=== PATIENT | female | born 1970 | race Caucasian/White ===

== ENCOUNTER 2019-02-15 03:27 | Emergency (ER) ==
[2019-02-15] MEDS ORDERED: KETOROLAC 30 MG/ML INJ ONE (04:13)
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
--- NOTE | 2019-02-15 11:15 | RAD REPORT ---
EXAM DESCRIPTION: CT - C Spine Wo Con - 02/15/2019 5:03 am CLINICAL HISTORY: The patient is 89 years old and is Female; ABD PAIN TECHNIQUE: Axial computed tomography images of the abdomen and pelvis with intravenous contrast. S agittal and coronal reformatted images were created and reviewed. This CT exam was performed using one or more of the following dose reduction techniques: automated exposure control, adjustment of t he mA and/or kV according to patient size, and/or use of iterative reconstruction technique. COMPARISON: CT abdomen and pelvis with IV contrast dated February 03, 2019. FINDINGS: LUNG BASES: Unremarkable. No mass. No consolidation. PLEURAL SPACE: Unchanged spiculated 8 mm nodule in the right lung base. No focal consolidation, pl eural effusion or pneumothorax. HEART: Visualized heart is within normal limits. ABDOMEN: LIVER: Intrahepatic ductal dilatation. No mass. GALLBLADDER AND BILE DUCTS: Prior cholecystectomy with extrahepatic ductal dilatation. PANCREAS: Unremarkable. No mass. No ductal dilation. SPLEEN: Unremarkable. No splenomegaly. ADRENALS: Nodular thickening of the left adrenal gland. KIDNEYS AND URETERS: Unremarkable. No solid mass. No hydronephrosis. STOMACH AND BOWEL: Continued evidence of diffuse fluid distention of the small bowel with terminal ileal decompression. Redemonstration of obstructive mass in the dome measuring approximately 2.4 x 2 .3 cm (series 502, image 27). PELVIS: APPENDIX: No findings to suggest acute appendicitis. BLADDER: Unremarkable. No mass. REPRODUCTIVE: Prior hysterectomy. ABDOMEN and PELVIS: INTRAPERITONEAL SPACE: Unremarkable. No free air. No significant fluid collection. BONES/JOINTS: Diffuse osteopenia, advanced levoscoliosis and associated degenerative changes. No acute fracture. No dislocation. SOFT TISSUES: Unremarkable. VASCULATURE: Vascular calcifications. No abdominal aortic aneurysm. LYMPH NODES: Unremarkable. No enlarged lymph nodes. IMPRESSION: 1. Unchanged small bowel obstruction secondary to obstructive lesion in the terminal i leum with marked fluid distention of the small bowel proximal to this finding. No perforation. 2. Diffuse osteopenia, advanced levoscoliosis and associated degenerative changes. 3. Unchanged nodular thickening of the left adrenal gland. 4. Unchanged 8 to 10 mm spiculated right lower lobe pulmonary nodule. Electronically signed by: Marco A Jason DO 02/15/2019 3:52 AM CDT Due to temporary technical issues with the PACS/Fluency reporting system, reports are being signed by the in house radiologist as a courtesy to ensure prompt reporting. The interpreting radiologist is f ully responsible for the content of the report.
== END 2019-02-15 07:41 | disposition home or self-care (01) ==
LOC: ER 03:27
DX: S10.93XA Contusion of unspecified part of neck, initial encounter (principal); Y04.8XXA Assault by other bodily force, initial encounter; Y93.9 Activity, unspecified; Y92.009 Unspecified place in unspecified non-institutional (private) residence as the place of occurrence of the external cause; Z88.2 Allergy status to sulfonamides; F31.9 Bipolar disorder, unspecified; F17.210 Nicotine dependence, cigarettes, uncomplicated
CPT/HCPCS: 72125; 96372; 99284